=== PATIENT | female | born 2000 | race Caucasian/White ===

== ENCOUNTER 2018-01-28 17:57 | Emergency (ER) | payer MEDICAID ==
[~2018-01-28] VITALS: Ht 160 cm; Wt 83.1 kg
[2018-01-28 18:01] VITALS: BP 130/67
== END 2018-01-28 19:15 | disposition home or self-care (01) ==
LOC: ED 19:13
DX: J02.9 Acute pharyngitis, unspecified (principal); J35.8 Other chronic diseases of tonsils and adenoids; F31.9 Bipolar disorder, unspecified
CPT/HCPCS: 99281

== ENCOUNTER 2018-05-29 12:11 | Emergency (ER) | payer SELFPAY ==
[~2018-05-29] VITALS: Ht 157.5 cm; Wt 86.7 kg
[2018-05-29 12:17] VITALS: BP 100/67
[2018-05-29] MEDS ORDERED: DEXAMETHASONE 4 MG/ML, 1ML PO ONE (13:00)
[2018-05-29] MEDS ORDERED: DEXAMETHASONE 4 MG/ML, 5ML ONE (13:13)
== END 2018-05-29 13:51 | disposition home or self-care (01) ==
LOC: ED 13:37
DX: J02.0 Streptococcal pharyngitis (principal); F31.9 Bipolar disorder, unspecified
CPT/HCPCS: 99283; J1100

== ENCOUNTER 2018-06-01 12:24 | Emergency (ER) | payer SELFPAY ==
[~2018-06-01] VITALS: Ht 157.5 cm; Wt 86.9 kg
[2018-06-01 12:34] VITALS: BP 108/76
[2018-06-01] MEDS ORDERED: DEXAMETHASONE 4 MG TABLET ONE (13:18)
[2018-06-01 13:29] LABS: BASOPHILS # (AUTO) 0.02 x10^3/uL (0-0.3); BASOPHILS % (AUTO) 0 % (0-1); EOSINOPHILS # (AUTO) 0.05 x10^3/uL (0-0.8); EOSINOPHILS % (AUTO) 1 % (1-7); LYMPHOCYTES # (AUTO) 1.39 x10^3/uL (1-6.1); LYMPHOCYTES % (AUTO) 14 % (22-44); MD NO; MEAN CORPUSCULAR HEMOGLOBIN 31.3 pg (27.0-34.8); MEAN CORPUSCULAR VOLUME 92.1 fL (80-100); MEAN PLATELET VOLUME 7.5 fL (7.4-10.4); MONOCYTES # (AUTO) 0.85 x10^3/uL (0-1.4); MONOCYTES % (AUTO) 9 % (2-9); NEUTROPHILS # (AUTO) 7.33 x10^3/uL (1.8-8.0); NEUTROPHILS % (AUTO) 76 % (42-75); PLATELET COUNT 305 x10^3/uL (130-400); RED BLOOD COUNT 4.16 x10^6/uL (3.82-5.3); RED CELL DISTRIBUTION WIDTH 12.5 % (9.6-15.2)
[2018-06-01] MEDS ORDERED: DEXAMETHASONE 4 MG TABLET PO ONE (13:30)
--- NOTE | 2018-06-01 14:39 | NUR ---
Patient/Caregiver given discharge instructions and they have confirmed that they understand the instructions. Patient ambulatory with steady gait.
== END 2018-06-01 14:41 | disposition home or self-care (01) ==
LOC: ED 14:10
DX: J02.8 Acute pharyngitis due to other specified organisms (principal); B97.89 Other viral agents as the cause of diseases classified elsewhere; Z88.0 Allergy status to penicillin
CPT/HCPCS: 36415; 85025; 86308; 99283

== ENCOUNTER 2018-07-24 15:30 | Emergency (ER) | payer SELFPAY ==
[~2018-07-24] VITALS: Ht 160 cm; Wt 89.4 kg
[2018-07-24 15:32] VITALS: BP 118/79
--- NOTE | 2018-07-24 15:55 | NUR ---
PT WITH C/O DIZZYNESS THIS MORNING, +N/V AND HARDY. SYMPTOMS RESSOLVED ENOUGH FOR HER TO GO TO WORK AND THEN SHE LEFT WORK AT 1100 2/2 +NAUSEA AND DIZZINESS, HARDY PAIN NOW 06/17 LABS DRAWN AND PT LYING ON GURNEY, BP AND PULSE OX MONITORING IN PLACE. CALL LIGHT W/I REACH
[2018-07-24 16:02] LABS: BASOPHILS # (AUTO) 0.07 x10^3/uL (0-0.3); BASOPHILS % (AUTO) 1 % (0-1); EOSINOPHILS % (AUTO) 2 % (1-7); LYMPHOCYTES # (AUTO) 2.02 x10^3/uL (1-6.1); LYMPHOCYTES % (AUTO) 29 % (22-44); MD NO; MEAN CORPUSCULAR HEMOGLOBIN 30.9 pg (27.0-34.8); MEAN CORPUSCULAR HGB CONC 33.1 g/dL (32.4-35.8); MEAN CORPUSCULAR VOLUME 93.5 fL (80-100); MEAN PLATELET VOLUME 7.6 fL (7.4-10.4); MONOCYTES # (AUTO) 0.64 x10^3/uL (0-1.4); MONOCYTES % (AUTO) 9 % (2-9); NEUTROPHILS # (AUTO) 4.12 x10^3/uL (1.8-8.0); NEUTROPHILS % (AUTO) 59 % (42-75); PLATELET COUNT 369 x10^3/uL (130-400); RED BLOOD COUNT 4.33 x10^6/uL (3.82-5.3); RED CELL DISTRIBUTION WIDTH 13.5 % (9.6-15.2)
[2018-07-24 16:09] LABS: ALBUMIN 4.1 g/dL (3.4-5.0); ANION GAP 4 mmol/L (5-15); CALCIUM 8.7 mg/dL (8.5-10.1); CHLORIDE 110 mmol/L (98-107); CREATININE 0.66 mg/dL (0.55-1.02)
[2018-07-24] MEDS ORDERED: MECLIZINE CHEWABLE 25 MG TAB ONE (16:43)
[2018-07-24] MEDS ORDERED: MECLIZINE CHEWABLE 25 MG TAB PO ONE (17:00)
[2018-07-24 17:25] LABS: MICROSCOPIC NOT IND
[2018-07-24 17:28] LABS: CULTURE INDICATED? NO
--- NOTE | 2018-07-24 18:09 | NUR ---
Patient/Caregiver given discharge instructions and they have confirmed that they understand the instructions. Patient ambulatory with steady gait.
== END 2018-07-24 18:10 | disposition home or self-care (01) ==
LOC: ED 17:45
DX: R42 Dizziness and giddiness (principal); R11.2 Nausea with vomiting, unspecified; F17.200 Nicotine dependence, unspecified, uncomplicated
CPT/HCPCS: 36415; 80048; 81003; 82040; 84703; 85025; 93005; 99284

== ENCOUNTER 2019-03-11 22:26 | Emergency (ER) | payer SELFPAY ==
[~2019-03-11] VITALS: Ht 157.5 cm; Wt 87.1 kg
[2019-03-11] MEDS ORDERED: DEXAMETHASONE 4 MG TABLET ONE (22:51)
--- NOTE | 2019-03-11 22:55 | NUR ---
PT C/O SORE THROAT FOR X7DAYS, REPORTS INTERMITTENT COUGH W/ SPUTUM. PT DENIES FEVER, HARDY, N/V. PT COPNNECTED TO MONITORING, ALL SAFETY MEASURES IN PLACE, CALL LIGHT WITHIN REACH.
[2019-03-11] MEDS ORDERED: DEXAMETHASONE 4 MG TABLET PO ONE (23:00)
[2019-03-11] MEDS ORDERED: CARB200T2 PO (23:04)
[2019-03-11] MEDS ORDERED: BUSP30TA PO (23:05)
[2019-03-11 23:39] VITALS: BP 104/72
== END 2019-03-11 23:41 | disposition home or self-care (01) ==
LOC: ED 23:00
DX: J02.9 Acute pharyngitis, unspecified (principal); F31.9 Bipolar disorder, unspecified
CPT/HCPCS: 87081; 87880; 99283